=== PATIENT | female | born 1990 | race Caucasian/White ===

== ENCOUNTER 2016-10-14 19:50 | Inpatient (IN) | payer OTHER ==
[2016-10-14] MEDS ORDERED: OBEPIDURAL* 250 ML ONE (20:38)
[2016-10-14 20:41] LABS: Hematocrit 37 % (35-47); Hemoglobin 12.8 g/dl (12.0-16.0); Mean Corpuscular HGB Conc 34 g/dl (31-36); Mean Corpuscular Hemoglobin 30 pg (27-31); Mean Corpuscular Volume 89 fL (80-97); Mean Platelet Volume 8 um3 (7.4-10.4); Red Blood Count 4.22 10^6/ul (4.0-5.4); Red Cell Distribution Width 13 % (10.5-15); White Blood Count 18.8 10^3/ul (3.5-10.8)
[2016-10-14 20:42] LABS: Comments Flag Yes
[2016-10-14 20:43] LABS: Add Diff/Slide Review? Slide Review Added
[2016-10-14] MEDS ORDERED: Sodium Citrate/Citric Acid* 15 ML UDC PO PRN (21:52)
[2016-10-14] MEDS ORDERED: Famotidine TAB* 20 MG PO PRN (21:52)
[2016-10-14] MEDS ORDERED: Phenylephrine IV* 40 MCG/ML 10 ML SYRINGE IV PUSH PRN (21:52)
[2016-10-14] MEDS ORDERED: OBEPIDURAL* 250 ML EPIDURAL SCH (22:00)
[2016-10-15] MEDS ORDERED: Dibucaine 1% 28.35 GM TUBE PR PRN (01:52)
[2016-10-15] MEDS ORDERED: Witch Hazel PAD* JAR TOPICAL PRN (01:52)
[2016-10-15] MEDS ORDERED: Acetaminophen TAB* 325 MG PO PRN (01:52)
[2016-10-15] MEDS ORDERED: Glycerin ADULT SUPP PR PRN (01:52)
[2016-10-15] MEDS: Ibuprofen TAB* 600 MG PO PRN ×3 (04:00→19:35)
[2016-10-15] MEDS ORDERED: Simethicone CHEW TAB* 80 MG PO SCH (08:30)
[2016-10-15] MEDS: Docusate CAP* 100 MG PO SCH ×3 (09:29→21:11)
[2016-10-16] MEDS: Ibuprofen TAB* 600 MG PO PRN ×2 (01:41→07:56)
[2016-10-16 06:32] LABS: Hematocrit 38 % (35-47); Hemoglobin 12.8 g/dl (12.0-16.0); Mean Corpuscular HGB Conc 34 g/dl (31-36); Mean Corpuscular Hemoglobin 30 pg (27-31); Mean Corpuscular Volume 91 fL (80-97); Mean Platelet Volume 8 um3 (7.4-10.4); Red Blood Count 4.21 10^6/ul (4.0-5.4); Red Cell Distribution Width 13 % (10.5-15); White Blood Count 14.7 10^3/ul (3.5-10.8)
[2016-10-16 07:44] VITALS: BP 104/65
[2016-10-16] MEDS: Docusate CAP* 100 MG PO SCH (07:56)
[2016-10-16] MEDS ORDERED: Ferrous Gluconate TAB* 324 MG TAB PO SCH (09:00)
== END 2016-10-16 10:26 | disposition home or self-care (01) | DRG 560 ==
LOC: MCHOBOUT 19:50 → MCHOB 20:27
PROVIDERS: ADMIT Obstetrics & Gynecology; ATTEND Obstetrics & Gynecology
PROC: 10E0XZZ Delivery of Products of Conception, External Approach (ICD-10-PCS; principal; 2016-10-15)
PROC: 10907ZC Drainage of Amniotic Fluid, Therapeutic from Products of Conception, Via Natural or Artificial Opening (ICD-10-PCS; 2016-10-15)
DX: O80 Encounter for full-term uncomplicated delivery (principal); Z37.0 Single live birth; Z3A.39 39 weeks gestation of pregnancy
CPT/HCPCS: 36415; 85025; 86850; 86900; 86901; A9270-GY

== ENCOUNTER 2019-07-02 09:57 | Inpatient (IN) | payer BC ==
[2019-07-02] MEDS ORDERED: Lactated Ringers 1000 ML Bag* 1,000 ML IV ONE ×2 (10:36→16:43)
[2019-07-02] MEDS ORDERED: Buffered Lidocaine 1% SYRIN* 1 ML/SYRINGE INTRADERM ONE (10:36)
[2019-07-02 10:43] LABS: ABS Eosinophils 0.1 10^3/ul (0-0.6); ABS Lymphocytes 1.5 10^3/ul (1.0-4.8); ABS Neutrophils 7.9 10^3/ul (1.5-7.7); Eosinophil % 1.1 %; Hematocrit 37 % (35-47); Hemoglobin 12.9 g/dL (12.0-16.0); Lymphocyte % 14.5 %; Mean Corpuscular HGB Conc 35 g/dL (31-36); Mean Corpuscular Hemoglobin 31 pg (27-31); Mean Corpuscular Volume 88 fL (80-97); Mean Platelet Volume 7.6 fL (7.4-10.4); Platelet Count 212 10^3/uL (150-450); Red Blood Count 4.21 10^6 /uL (3.70-4.87); Red Cell Distribution Width 14 % (10-15); White Blood Count 10.6 10^3/uL (3.5-10.8)
--- NOTE | 2019-07-02 10:44 | HP ---
General Information - Reason for Visit elective induction - General Information Maternal Age: 29 Grav: 4 Para: 2 SAB: 0 IEA: 1 Estimated Due Date: 07/08/19 Determined By: Early Ultrasound Maternal Blood Type and Rh: O Positive - Results this Serology/RPR Result: Non-Reactive Rubella Result: Immune HBsAg Result: Negative HIV Result: Negative GBS Culture Result: Negative Past Medical History Delivery History: See Records Pertinent Past Medical History: See Records Pertinent Past Surgical History: See Records Pertinent Family History: See Records - Antepartal Records Antepartal Records: Reviewed, Uncomplicated Review of Systems Constitutional: Comfortable CV Complaint: No Respiratory: Shortness of Breath: No Gastrointestinal: No Nausea/Vomiting Genitourinary: No Dysuria, No Bleeding, No Leaking Fluid Musculoskeletal: No Complaint Neurological: No Headache Movement: Normal Exam Allergies/Adverse Reactions: Allergies No Known Allergies Allergy (Verified 10/16/16 08:37) - Measurements Height: 5 ft 3 in Weight: 164 lb Weight in lbs: [phone] Body Mass Index (BMI): 29.0 Pre- Weight: 127 lb Weight Gained This : 37 lbs and 0 ozs - Exam Breast: Breast Exam Deferred CVA: No CVA Tenderness Extremities: No Edema Heart: Normal Rhythm/Heart Sounds HEENT: No Significant Findings Lungs: Clear Bilaterally Rectal: Rectal Exam Deferred Reflexes: DTR 2+ Thyroid: No Thyromegaly - Abdominal Exam Abdomen Exam: Non-Tender Targeted Exam Findings Cervical Exam: 3cm Effacement: 80% Station: -1 Presenting Part: Vertex EFM Findings - External Monitor Findings Baseline Heart Rate: 140 External Monitor Findings: Accelerations Present, No Pattern of Variable or Late Decelerations, Variability Moderate, Baseline Stable Contractions: None Assessment/Plan - Assessment Pt 29 yo at 39 1/7 weeks for elective induction with favorable cervix - Plan Plan: Induction, Admit - Anticipate Vaginal Delivery
[2019-07-02] MEDS ORDERED: Oxytocin in LR* 20 UNITS/1,000 ML BAG IVPB SCH ×2 (11:00→20:00)
[2019-07-02] MEDS ORDERED: Lactated Ringers 1000 ML Bag* 1,000 ML IV SCH ×4 (11:00→20:00)
[2019-07-02 11:58] LABS: Urine Benzodiazepine Screen None Detected (None Detect); Urine Opiates Screen None Detected (None Detect)
[2019-07-02] MEDS ORDERED: OBEPIDURAL* 250 ML EPIDURAL ONE (15:16)
[2019-07-02] MEDS ORDERED: Calcium Carbonate CHEW TAB* 500 MG (TUMS) ONE (15:50)
[2019-07-02] MEDS ORDERED: Lidocaine 2% w/ EPI 1:200,000* 20 ML SDV VIAL ONE (16:28)
[2019-07-02] MEDS ORDERED: Lactated Ringers 1000 ML Bag* 500 ML IV PRN ×2 (16:43)
[2019-07-02] MEDS ORDERED: Famotidine TAB* 20 MG PO PRN (16:43)
[2019-07-02] MEDS ORDERED: Sodium Citrate/Citric Acid* 15 ML UDC PO PRN (16:43)
[2019-07-02] MEDS ORDERED: Phenylephrine 40 MCG/ML SYRINGE IV PUSH PRN (16:43)
[2019-07-02] MEDS ORDERED: OBEPIDURAL* 250 ML EPIDURAL SCH (17:00)
[2019-07-02] MEDS: Phenylephrine 40 MCG/ML SYRINGE IV PUSH PRN ×2 (17:48→17:51)
[2019-07-02] MEDS ORDERED: Glycerin ADULT SUPP PR PRN (19:06)
[2019-07-02] MEDS ORDERED: Acetaminophen TAB* 325 MG PO PRN (19:06)
[2019-07-02] MEDS ORDERED: Dibucaine 1% 28.35 GM TUBE PR PRN (19:06)
--- NOTE | 2019-07-02 19:10 | PROCNOTE ---
[facility] OB: Delivery Note - Delivery A Date of : 07/02/19 Time of : 18:52 Sex: Male Score 1 Minute: 8 Score 5 Minutes: 9 Gestational Age in Weeks and Days at Delivery: 39 Weeks and 1 Days Delivery Method: Spontaneous Vaginal Labor: Induced Did Patient attempt ?: N/A, No Previous Amniotic Fluid: Clear Estimated Blood Loss: 300 Anesthesia/Analgesia: CEI for Labor Delivered By: Page Guaman - Nursery Level of Nursery: Regular/Bedside - Perineum Perineal Injury: None/Intact Perineal Repair: None - Events Delivery Events of Note: Pitocin During Labor - Additional Delivery Notes Additional Delivery Notes: nuchal cord X 1 /hand cord X 1/ placenta 3 VC/ spontaneous/ intact
[2019-07-02] MEDS: Ibuprofen TAB* 600 MG PO PRN (20:07)
[2019-07-02] MEDS: Witch Hazel PAD* JAR TOPICAL PRN (20:07)
[2019-07-02] MEDS: Simethicone TAB* 80 MG TAB.CHEW PO SCH (22:32)
[2019-07-02] MEDS: Docusate CAP* 100 MG PO SCH (22:32)
[2019-07-03] MEDS: Ibuprofen TAB* 600 MG PO PRN ×3 (02:40→20:08)
[2019-07-03 07:09] LABS: ABS Eosinophils 0.1 10^3/ul (0-0.6); ABS Lymphocytes 1.9 10^3/ul (1.0-4.8); ABS Monocytes 1.4 10^3/ul (0-0.8); ABS Neutrophils 11.3 10^3/ul (1.5-7.7); Eosinophil % 0.7 %; Hematocrit 34 % (35-47); Lymphocyte % 12.8 %; Mean Corpuscular HGB Conc 35 g/dL (31-36); Mean Corpuscular Hemoglobin 31 pg (27-31); Mean Corpuscular Volume 88 fL (80-97); Mean Platelet Volume 7.2 fL (7.4-10.4); Platelet Count 192 10^3/uL (150-450); Red Blood Count 3.87 10^6 /uL (3.70-4.87); Red Cell Distribution Width 14 % (10-15); White Blood Count 14.7 10^3/uL (3.5-10.8)
[2019-07-03] MEDS: Docusate CAP* 100 MG PO SCH ×3 (08:19→20:08)
[2019-07-03] MEDS: Simethicone TAB* 80 MG TAB.CHEW PO SCH ×3 (08:20→19:58)
[2019-07-03] MEDS: Ferrous Gluconate TAB* 324 MG TAB PO SCH ×2 (08:20→10:59)
[2019-07-03] MEDS: Witch Hazel PAD* JAR TOPICAL PRN (20:39)
[2019-07-04] MEDS: Ferrous Gluconate TAB* 324 MG TAB PO SCH (07:58)
[2019-07-04] MEDS: Docusate CAP* 100 MG PO SCH (08:03)
[2019-07-04] MEDS: Simethicone TAB* 80 MG TAB.CHEW PO SCH (08:04)
[2019-07-04] MEDS: Ibuprofen TAB* 600 MG PO PRN (08:04)
[2019-07-04 08:10] VITALS: BP 109/60
== END 2019-07-04 10:47 | disposition home or self-care (01) | DRG 560 ==
LOC: MCHOBOUT 09:57 → MCHOB 10:17
PROVIDERS: ADMIT Obstetrics & Gynecology; ATTEND Obstetrics & Gynecology
PROC: 10E0XZZ Delivery of Products of Conception, External Approach (ICD-10-PCS; principal; 2019-07-02)
PROC: 3E033VJ Introduction of Other Hormone into Peripheral Vein, Percutaneous Approach (ICD-10-PCS; 2019-07-02)
PROC: 10907ZC Drainage of Amniotic Fluid, Therapeutic from Products of Conception, Via Natural or Artificial Opening (ICD-10-PCS; 2019-07-02)
DX: O69.81X0 Labor and delivery complicated by cord around neck, without compression, not applicable or unspecified (principal); Z37.0 Single live birth; O69.89X0 Labor and delivery complicated by other cord complications, not applicable or unspecified; Z3A.39 39 weeks gestation of pregnancy
CPT/HCPCS: 36415; 80307; 85025; 86850; 86900; 86901; A9270-GY; G0480